=== PATIENT | female | born 1965 | race African-American/Black ===

== ENCOUNTER 2016-10-02 02:45 | Emergency (ER) | payer OTHER ==
[~2016-10-02] VITALS: Ht 175.3 cm; Wt 79.4 kg
[2016-10-02] MEDS ORDERED: LISINOPRIL5 M1 PO (02:57)
[2016-10-02] MEDS ORDERED: ATORVASTATIN CA20 M1 PO (02:58)
[2016-10-02 04:00] VITALS: BP 133/78
--- NOTE | 2016-10-02 04:02 | ED PSYCHIATRIC COMPLAINT ---
History of Present Illness General Chief Complaint: ETOH/Drug Related Complaint Stated Complaint: BIBA ETOH Source: patient, EMS Exam Limitations: poor historian, intoxication Vital Signs & Intake/Output Vital Signs & Intake/Output Vital Signs Date Time Temp Pulse Resp B/P B/P Pulse O2 O2 Flow FiO2 Mean Ox Delivery Rate 10/02 0255 97.4 88 16 142/80 Reconcile Medications Atorvastatin Calcium 20 MG TABLET 1 TAB PO DAILY CHOL (Reported) Lisinopril 5 MG TABLET 1 TAB PO DAILY HTN (Reported) Triage Note: 51YO FEMALE TO PAZ VIA AMB FROM [place] [employer] IN [place]. PT DENIES ANY COMPLAINTS . STATES "I JUST WANTED A RIDE HOME. [place]" ADMITS TO DRINKING AT [employer]. Triage Nurses Notes Reviewed? yes HPI: Patient presents for evaluation of intoxication. She cannot say how she came to be in the [facility] emergency department other than that she came in by ambulance. She cannot state who called the ambulance. She has no specific complaint at this point admits to drinking a little too much tonight at a graduation [employer]. She denies daily alcohol use and she denies any drug use. Past History Travel History Traveled to [place] past 21 day No Medical History Any Pertinent Medical History? see below for history Neurological: CVA Cardiovascular: hypertension, hyperlipidemia Cancer(s): R BREAST Surgical History Surgical History: non-contributory Psychosocial History What is your primary language Occitan Tobacco Use: Quit >30 days ago ETOH Use: occasional use Family History Hx Contributory? No Review of Systems Review of Systems Constitutional: Reports: no symptoms. EENTM: Reports: no symptoms. Respiratory: Reports: no symptoms. Cardiovascular: Reports: no symptoms. GI: Reports: no symptoms. Genitourinary: Reports: no symptoms. Musculoskeletal: Reports: no symptoms. Skin: Reports: no symptoms. Neurological/Psychological: Reports: no symptoms. Hematologic/Endocrine: Reports: no symptoms. Immunologic/Allergic: Reports: no symptoms. All Other Systems: Reviewed and Negative Physical Exam Physical Exam General Appearance: SEE BELOW Neurological/Psychiatric: SEE BELOW Comments: Gen.: Well-nourished, well-developed, no acute respiratory distress. Somnolent but easily arousable, EtOH-like odor. Head: Normocephalic, atraumatic. Eyes: Normal inspection bilaterally Ears: Normal inspection bilaterally Nose: Normal inspection Throat/mouth : Moist mucosa Neck: Supple, full range of motion, no goiter Heart: Regular rate and rhythm, no murmurs rubs or gallops Lungs: Clear to auscultation bilaterally with normal air entry Chest: Nontender Back: Normal range of motion Abdomen: Soft, nontender, nondistended, normal bowel sounds Extremities: Normal range of motion grossly, equal radial pulses, no cyanosis clubbing or edema Neurologic: Cranial nerves grossly intact, speech is slurred but otherwise appropriate Skin: warm and dry Psychiatric: Calm, cooperative, no apparent delusions or hallucinations SAD PERSONS Done? patient not suicidal Progress Differential Diagnosis: ALCOHOL INTOXICATION, DRUG INTOXICATION Plan of Care: Avoid alcohol Comments: Patient will be taken home by her daughter who is staying with her (her daughter 's home from college). Her daughter feels comfortable taking her home and watching her for the remainder of the evening. Departure Departure Disposition: HOME OR SELF CARE Condition: Stable Clinical Impression Primary Impression: Alcohol intoxication Qualifiers: Complication of substance-induced condition: uncomplicated Qualified Code: F10.920 - Alcohol use, unspecified with intoxication, uncomplicated Referrals: TRENA GARCIA APRN (PCP/Family) Additional Instructions: Avoid alcohol. Follow-up with your primary care physician this week for reevaluation. Return if any concerns or sudden worsening. Departure Forms: Customer Survey General Discharge Information
== END 2016-10-02 04:20 ==
LOC: ERH 02:45
DX: F10.129 Alcohol abuse with intoxication, unspecified (principal)